=== PATIENT | male | born 1935 | race Caucasian/White ===

== ENCOUNTER 2020-07-14 16:57 | Emergency (ER) | payer OTHER, MEDICARE ==
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
[2020-07-14 18:57] VITALS: BP 134/67
--- OUTSIDE RECORDS SUMMARY | 2020-07-14 19:53 | XMS REPORT ---
:1935 [facility] [address] [place] [address] Care Team Providers Name Role Phone Kody Byrne Primary Care Physician Unavailable Allergies, Adverse Reactions, Alerts This patient has no known allergies or adverse reactions. Medications This patient has no known medications. Problems This patient has no known problems. Procedures This patient has no known procedures. Results This patient has no known results. Social History This patient has no known social history. Vital Signs This patient has no known vital signs.
== END 2020-07-14 19:11 | disposition home or self-care (01) ==
LOC: ER 16:57
DX: S16.1XXA Strain of muscle, fascia and tendon at neck level, initial encounter (principal); S00.03XA Contusion of scalp, initial encounter; V49.40XA Driver injured in collision with unspecified motor vehicles in traffic accident, initial encounter; E11.9 Type 2 diabetes mellitus without complications
CPT/HCPCS: 70450; 72125; 99284